=== PATIENT | male | born 2000 | race Caucasian/White ===

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

== ENCOUNTER 2021-06-11 14:18 | Emergency (ER) | payer SELFPAY ==
[~2021-06-11] VITALS: Ht 182.9 cm; Wt 63.5 kg
[2021-06-11 15:00] VITALS: BP 117/74
--- NOTE | 2021-06-11 15:05 | NUR ---
BIBS FOR C/O L BACK OF THE EAR ABSCESS X 2 DAYS. RATES LEFT EAR PAIN 6/10. WILL CONTINUE TO MONITOR THE PATIENT.
[2021-06-11] MEDS ORDERED: LIDOCAINE /MPF 1% VIAL 5 ML VIAL ONE (15:36)
[2021-06-11] MEDS ORDERED: CEPH500T PO (16:04)
[2021-06-11] MEDS ORDERED: SULF1TAB48 PO (16:04)
[2021-06-11] MEDS ORDERED: TDAP [DIPH/PERTUSSIS/TET] 0.5 ML VIAL IM ONE (16:05)
[2021-06-11] MEDS: LIDOCAINE HCL/PF 1% 30 ML VIAL TP ONE (16:09)
[2021-06-11] MEDS: TDAP [DIPH/PERTUSSIS/TET] 0.5 ML VIAL IM ONE (16:09)
--- NOTE | 2021-06-11 16:10 | NUR ---
I&D DONE BY CARLOS LAU. PACKED, PROVIDED W/ WOUND CARE. DISCHARGE IN STABLE CONDITION.
== END 2021-06-11 16:12 | disposition home or self-care (01) ==
LOC: ER 14:21
DX: H60.02 Abscess of left external ear (principal)
CPT/HCPCS: 69000; 90471; 90715; 99283; A6407; J3490 ×2

== ENCOUNTER 2021-06-13 14:23 | Emergency (ER) | payer SELFPAY ==
[~2021-06-13] VITALS: Ht 177.8 cm; Wt 63.5 kg
[~2021-06-13 14:23] MED LIST: CEPH500T PO; SULF1TAB48 PO
[2021-06-13 14:40] VITALS: BP 132/73
--- NOTE | 2021-06-13 14:42 | NUR ---
BIBS for wound check. L side behind the neck abscess. I&D w/ packing done 2 days ago. Denies pain. No s/s infection noted. Will continue to monitor the patient.
--- NOTE | 2021-06-13 14:59 | NUR ---
Patient discharged to home in stable condition. Written and verbal after care instructions given. Patient verbalizes understanding of instruction.
== END 2021-06-13 15:01 | disposition home or self-care (01) ==
LOC: ER 14:49
DX: Z48.01 Encounter for change or removal of surgical wound dressing (principal)

== ENCOUNTER 2022-08-08 23:54 | Emergency (ER) | payer SELFPAY ==
[~2022-08-08] VITALS: Ht 177.8 cm; Wt 63.5 kg
[2022-08-09 00:06] VITALS: BP 142/84
== END 2022-08-09 00:35 | disposition home or self-care (01) ==
LOC: ER 23:59
DX: S61.512A Laceration without foreign body of left wrist, initial encounter (principal); F17.200 Nicotine dependence, unspecified, uncomplicated; Z79.899 Other long term (current) drug therapy; W26.8XXA Contact with other sharp object(s), not elsewhere classified, initial encounter; Y93.89 Activity, other specified; Y92.89 Other specified places as the place of occurrence of the external cause; Y99.8 Other external cause status